=== PATIENT | female | born 1955 | race American Indian/Alaskan Native ===

== ENCOUNTER 2018-07-15 19:03 | Observation (INO) | payer MEDICAID, OTHER ==
[2018-07-15 19:32] VITALS: BMI 25.7
[2018-07-15] MEDS ORDERED: Sodium Chloride 0.9% 1,000 ML IV STA (19:56)
--- NOTE | 2018-07-15 20:29 | ED PDOC ---
Arrival/HPI - General Chief Complaint: Female Genitourinary Time Seen by Provider: 07/15/18 19:26 Historian: Patient - History of Present Illness Narrative History of Present Illness (Text): 07/15/18 20:27 A 63 year old female, whose past medical history includes hypertension, diabetes, and cervical cancer, presents to the emergency department complaining of abdominal discomfort with associated occassional nausea/diarrhea for the past 3 days. Patient denies any fever, chills, cough, vomiting, shortness of breath, chest pain, or any other complaints at this time. PMD: Dr. Svetlana Rogers Time/Duration: < week (3 days ) Past Medical History - Provider Review Nursing Documentation Reviewed: Yes - Infectious Disease Hx of Infectious Diseases: None - Cardiac Hx Hypertension: Yes - Endocrine/Metabolic Hx Diabetes Mellitus Type 2: Yes (takes metformin) - Hematological/Oncological Hx Cancer: Yes (clitoris) - Psychiatric Hx Substance Use: No - Surgical History Hx Tubal Ligation: Yes Other/Comment: Vaginal surgery for CA. Vaginal cyst I&D - Anesthesia Hx Anesthesia: Yes Hx Anesthesia Reactions: No Family/Social History - Physician Review Nursing Documentation Reviewed: Yes Family/Social History: No Known Family HX Smoking Status: Former Smoker Hx Alcohol Use: Yes Frequency of alcohol use: Socially Hx Substance Use: No Allergies/Home Meds Allergies/Adverse Reactions: Allergies No Known Allergies Allergy (Verified 07/15/18 19:33) Review of Systems - Physician Review All systems were reviewed & negative as marked: Yes - Review of Systems Constitutional: absent: Fevers, Night Sweats Respiratory: absent: SOB, Cough Cardiovascular: absent: Chest Pain Gastrointestinal: Abdominal Pain (abdominal discomfort), Diarrhea, Nausea. absent: Vomiting Physical Exam Vital Signs Reviewed: Yes Vital Signs Pulse Resp BP Pulse Ox 07/15/18 19:32 92 H 18 151/81 H 99 Blood Pressure: Normal Pulse: Regular Respiratory Rate: Normal Appearance: Positive for: Well-Appearing, Non-Toxic, Comfortable Pain Distress: None Mental Status: Positive for: Alert and Oriented X 3 - Systems Exam Head: Present: Atraumatic, Normocephalic Pupils: Present: PERRL Extroacular Muscles: Present: EOMI Conjunctiva: Present: Normal Mouth: Present: Moist Mucous Membranes Neck: Present: Normal Range of Motion Respiratory/Chest: Present: Clear to Auscultation, Good Air Exchange. No: Respiratory Distress, Accessory Muscle Use Cardiovascular: Present: Regular Rate and Rhythm, Normal S1, S2. No: Murmurs Abdomen: Present: Tenderness (left upper abdomen), Normal Bowel Sounds. No: Distention, Peritoneal Signs Back: Present: Normal Inspection Upper Extremity: Present: Normal Inspection. No: Cyanosis, Edema Lower Extremity: Present: Normal Inspection. No: Edema Neurological: Present: GCS=15, CN II-XII Intact, Speech Normal Skin: Present: Warm, Dry, Normal Color. No: Rashes Psychiatric: Present: Alert, Oriented x 3, Normal Insight, Normal Concentration Medical Decision Making ED Course and Treatment: 07/15/18 20:28 Impression: 63 year old female with abdominal discomfort with associated occasional nausea/diarrhea. No acute findings on physical examination. Plan: -- Abd/Pelvis CT -- Labs -- Urinalysis -- Pepcid -- IV Fluids -- Toradol -- Zofran -- Reassess and disposition Progress Notes: 07/15/18 23:58 CT Abdomen and Pelvis: FINDINGS: LUNG BASES: The lung bases appear clear. No pleural effusions are seen. LIVER: Unremarkable. GALLBLADDER AND BILE DUCTS: The gallbladder appears within normal limits. No radioopaque gallstones are seen. No biliary ductal dilatation is evident. PANCREAS: There is diffuse pancreatic ductal dilatation, up to 7 mm. This is associated with scattered pancreatic calcifications compatible with chronic pancreatitis. There is no evidence of a pancreatis mass. SPLEEN: Unremarkable. ADRENAL GLANDS: Unremarkable. KIDNEYS, URETERS, AND BLADDER: The kidneys appear within normal limits. There is no hydronephrosis or hydroureter. No urinary calculi are seen. STOMACH AND BOWEL: Unremarkable appearance of the stomach and bowel. No evidence of bowel obstruction. No evidence suggesting enteritis or colitis. APPENDIX: No evidence of acute appendicitis on CT examination. PERITONEUM: No free fluid. No free air. LYMPH NODES: No lymphadenopathy is evident. REPRODUCTIVE: The uterus contains several small calcified fibroids. VASCULATURE: No evidence of abdominal aortic aneurysm. BONES: No aggressive appearing osseous lesion. No acute osseous pathology evident. IMPRESSION: 1. There is diffuse pancreatic ductal dilatation, up to 7 mm. This is associated with scattered pancreatic calcifications compatible with chronic pancreatitis. There is no evidence of a pancreatis mass. 2. The uterus contains several small calcified fibroids. Electronically signed on Jul 15, 2018 11:52:58 PM EST by: Roderick Bush M.D., LEE Certified By [facility] & [facility] Fellowship Trained MRI and CT Specialist 07/16/18 00:32 Case discussed with biomedical engineering supervisor telesales professional, who is aware and agrees with plan. 07/16/18 00:[address] Kaur, who is aware and agrees with plan. Accepts pt in to hospitalist service. - RAD Interpretation Radiology Orders: 07/15/18 19:59 ABD & PELVIS IV CONTRAST ONLY [CT] Stat - Medication Orders Current Medication Orders: Sodium Chloride (Sodium Chloride 0.9%) 1,000 mls @ 999 mls/hr IV .Q1H1M STA Stop: 07/15/18 20:56 Discontinued Medications Famotidine (Pepcid) 20 mg IVP STAT STA Stop: 07/15/18 19:57 Ketorolac Tromethamine (Toradol) 30 mg IVP ONCE ONE Stop: 07/15/18 19:57 Ondansetron HCl (Zofran Inj) 4 mg IVP ONCE ONE Stop: 07/15/18 19:57 - Scribe Statement The provider has reviewed the documentation as recorded by the Soo Daniels Provider Scribe Attestation: All medical record entries made by the Scribe were at my direction and personally dictated by me. I have reviewed the chart and agree that the record accurately reflects my personal performance of the history, physical exam, medical decision making, and the department course for this patient. I have also personally directed, reviewed, and agree with the discharge instructions and disposition. Disposition/Present on Arrival - Present on Arrival Any Indicators Present on Arrival: No History of DVT/PE: No History of Uncontrolled Diabetes: No Urinary Catheter: No History of Decub. Ulcer: No History Surgical Site Infection Following: None - Disposition Have Diagnosis and Disposition been Completed?: Yes Diagnosis: Pancreatitis Disposition: HOSPITALIZED Disposition Time: 00:30 Patient Problems: Current Active Problems Problem Status Onset Pancreatitis Acute Condition: STABLE Referrals: Svetlana Rogers MD [Primary Care Provider] - Follow up with primary Forms: [employer] (French)
[2018-07-15 21:00] LABS: HEMOGLOBIN 13.9 g/dL (12.0-16.0); MEAN CELL VOLUME 96.4 fl (80.0-105.0); MEAN CORPUSCULAR HEMOGLOBIN 33.3 pg (25.0-35.0); MEAN CORPUSCULAR HGB CONC 34.6 g/dl (31.0-37.0); MEAN PLATELET VOLUME 9.1 fl (7.0-11.0); RBC 4.17 10^6/uL (3.5-6.1); URINE BILIRUBIN SMALL (NEGATIVE); URINE BLOOD NEGATIVE (NEGATIVE); URINE GLUCOSE (UA) NEGATIVE (NEGATIVE); URINE LEUKOCYTE ESTERASE TRACE Leu/uL (NEGATIVE); URINE PROTEIN TRACE mg/dL (<30 mg/dL); URINE UROBILINOGEN 0.2 E.U./dL (<1 E.U./dL); WHITE BLOOD COUNT 6.7 10^3/uL (4.5-11.0)
[2018-07-15 21:01] LABS: URINE APPEARANCE SL CLOUDY (CLEAR); URINE COLOR YELLOW (YELLOW)
[2018-07-15 21:19] LABS: URINE BACTERIA FEW /hpf; URINE RBC 0 - 2 /hpf (0-2)
[2018-07-15 22:18] LABS: ALB/GLOB RATIO 1.4 (1.1-1.8); ALBUMIN 4.5 g/dL (3.0-4.8); ALT/SGPT 22 U/L (7-56); AST/SGOT 27 U/L (14-36); BLOOD UREA NITROGEN 16 mg/dL (7-21); CALCIUM 10.4 mg/dL (8.4-10.5); GFR NON-AFRICAN AMERICAN > 60; LIPASE 738 U/L (23-300)
[2018-07-15] MEDS ORDERED: Iohexol 350 MG/100 ML VIAL ONE (22:44)
[2018-07-16] MEDS ORDERED: Sodium Chloride 0.9% 1,000 ML IV STA (01:25)
--- NOTE | 2018-07-16 01:41 | CP.PCM.HP ---
<HilariaPaco - Last Filed: 07/16/18 02:15> History of Present Illness - History of Present Illness History of Present Illness: Paco Manrique, PGY-1, Internal Medicine History and Physical for Dr. Kaur 63 year old female who is a poor historian with past medical history of chronic pancreatitis, cervical cancer, hypertension, hyperlipidemia, and diabetes mellitus type II presents with diffuse abdominal pain, vomiting, and diarrhea which worsened the past 3 days. Patient has a baseline epigastric abdominal pain, but reports that the pain has worsened and radiated to bilateral flank pain. Pain worsens with food intake. Patient reports having 2-3 episodes of nonbloody, nonbilious vomitus 2 days ago but has not any since that time. Patient has had black diarrhea as well over the past 2 days as patient reported that she took peptobismol and maalox. Patient reports unspecified weight loss in the last month. Patient has constant neuropathic pain in both lower extremities. Patient denies constipation, fever, chest pain, shortness of breath, dysuria, hematuria, or lower extremity swelling. 12-point ROS was negative except for what was mentioned above. PMH: as stated above PSH: tubal ligation, veginal cystectomy, 4 unspecified operations for cervical cancer FMHx: Mother: HTN and from old age at 75. Mother's side has family history of breast and gastric cancer. SHx: 1/2 PPD for 40 years, drinks 3 glasses of wine socially on holidays, denies recreational drug use. Last drink was on 07/10. Allergies: NKDA PCP: Dr. Walls. Patient previously has had Dr. Chakraborty and Dr. Meng as PCPs but is no longer seeing any of them because she lost Medicaid. Present on Admission - Present on Admission Any Indicators Present on Admission: No Review of Systems - Constitutional Constitutional: Weight Loss. absent: Anorexia, Chills, Fever, Headache - EENT Eyes: absent: Blurred Vision Ears: absent: Decreased Hearing - Cardiovascular Cardiovascular: absent: Chest Pain, Chest Pain at Rest, Diaphoresis, Dyspnea, Edema - Respiratory Respiratory: Cough (chronic nonproductive). absent: Dyspnea, Hemoptysis - Gastrointestinal Gastrointestinal: Abdominal Pain, Diarrhea. absent: Belching, Bloating, Constipation, Hematemesis, Hematochezia - Genitourinary Genitourinary: absent: Dysuria, Hematuria - Musculoskeletal Musculoskeletal: Back Pain. absent: Arthralgias - Integumentary Integumentary: Rash (on right lower extremity) - Neurological Neurological: Radicular Pain. absent: Numbness, Headaches Past Patient History - Infectious Disease Hx of Infectious Diseases: None - Past Social History Smoking Status: Former Smoker Alcohol: Occasional Drugs: Denies Home Situation {Lives}: With Family - CARDIAC Hx Hypertension: Yes - ENDOCRINE/METABOLIC Hx Diabetes Mellitus Type 2: Yes (takes metformin) - HEMATOLOGICAL/ONCOLOGICAL Hx Cancer: Yes (clitoris) - PSYCHIATRIC Hx Substance Use: No - SURGICAL HISTORY Hx Tubal Ligation: Yes Other/Comment: Vaginal surgery for CA. Vaginal cyst I&D - ANESTHESIA Hx Anesthesia: Yes Hx Anesthesia Reactions: No Meds Allergies/Adverse Reactions: Allergies Allergy/AdvReac Type Severity Reaction Status Date / Time No Known Allergies Allergy Verified 07/15/18 19:33 Physical Exam - Constitutional Appears: Well, Non-toxic, No Acute Distress - Head Exam Head Exam: ATRAUMATIC, NORMAL INSPECTION, NORMOCEPHALIC - Eye Exam Eye Exam: EOMI Pupil Exam: PERRL - Respiratory Exam Respiratory Exam: Clear to Auscultation Bilateral, NORMAL BREATHING PATTERN - Cardiovascular Exam Cardiovascular Exam: REGULAR RHYTHM, RRR - GI/Abdominal Exam GI & Abdominal Exam: Normal Bowel Sounds, Soft, Tenderness (diffuse). absent: Distended, Guarding, Rebound - Extremities Exam Extremities exam: Positive for: full ROM - Back Exam Back exam: FULL ROM - Neurological Exam Neurological exam: Alert, CN II-XII Intact, Oriented x3 Results - Vital Signs Recent Vital Signs: Last Vital Signs Temp Pulse 92 H 07/15/18 19:32 Resp 18 07/15/18 19:32 BP 151/81 H 07/15/18 19:32 Pulse Ox 99 07/15/18 19:32 - Labs Result Diagrams: 07/15/18 20:30 07/15/18 21:50 Labs: Laboratory Results - last 24 hr 07/15/18 07/15/18 07/15/18 20:30 20:30 21:50 WBC 6.7 RBC 4.17 Hgb 13.9 Hct 40.2 MCV 96.4 MCH 33.3 MCHC 34.6 RDW 14.0 Plt Count 319 MPV 9.1 Sodium 135 Potassium 4.2 Chloride 103 Carbon Dioxide 25 Anion Gap 12 BUN 16 Creatinine 0.7 Est GFR ( Amer) > 60 Est GFR (Non-Af Amer) > 60 Random Glucose 139 H Calcium 10.4 Total Bilirubin 0.5 AST 27 ALT 22 Alkaline Phosphatase 78 Total Protein 7.8 Albumin 4.5 Globulin 3.3 Albumin/Globulin Ratio 1.4 Lipase 738 H Urine Color Yellow Urine Appearance Sl cloudy Urine pH 6.0 Ur Specific Eldridge >= 1.030 Urine Protein Trace H Urine Glucose (UA) Negative Urine Ketones 15 H Urine Blood Negative Urine Nitrate Negative Urine Bilirubin Small H Urine Urobilinogen 0.2 Ur Leukocyte Esterase Trace H Urine RBC 0 - 2 Urine WBC 1 - 3 Ur Epithelial Cells 1 - 3 Urine Bacteria Few Assessment & Plan - Assessment and Plan (Free Text) Assessment: 63 year old female with past medical history of chronic pancreatitis, cervical cancer, hypertension, hyperlipidemia, and diabetes mellitus type II presents with diffuse abdominal pain, vomiting, and diarrhea which worsened the past 3 days. Plan: Abdominal Pain likely 2/2 to chronic pancreatitis -Doubt acute pancreatitis as lipase is not 3x normal, CTAP shows evidence for chronic pancreatitis, and clinical symptoms are not solar sales representative of acute pancreatitis attack -CT abdomen and pelvis: diffuse pancreatic ductal dilatation up to 7 mm. Scattered pancreatic calcifications compatible with chronic pancreatitis. No mass appreciated. Few calcified fibroids seen. -FOBT ordered to rule out upper GI bleed as cause of dark stool. Dark stool likely due to peptobismol. -Monona criteria: 1. Unlikely severe acute pancreatitis. -NPO -NS at 150 cc/hr -Tylenol for mild pain, Ibuprofen for moderate pain, and Tramadol for severe pain as needed -Advance diet as tolerated History of Cervical Cancer -Patient has had 4 surgeries in the past for cervical cancer -Patient is not complaining of any symptoms at this time. -CT Abdomen and pelvis: calcified fibroids likely representing degenerating fibroids -No management at this time. History of Hypertension -Continue with home medications History of Hyperlipidemia -Lipid panel ordered -Currently takes no medications at home History of Diabetes Mellitus Type II -Random glucose: 139 -Hemoglobin A1c ordered -Low dose SSI ordered DVT prophylaxis: lovenox 40 mg daily GI prophylaxis: protonix 40 mg daily Patient plan discussed with Dr. Kaur. - Date & Time Date: 07/16/18 Time: 01:45 <Gerardo Kaur - Last Filed: 07/16/18 06:11> Results - Vital Signs Recent Vital Signs: Last Vital Signs Temp 98.1 F 07/16/18 04:52 Pulse 56 L 07/16/18 04:52 Resp 20 07/16/18 04:52 BP 126/76 07/16/18 04:52 Pulse Ox 97 07/16/18 04:52 - Labs Result Diagrams: 07/15/18 20:30 07/15/18 21:50 Labs: Laboratory Results - last 24 hr 07/15/18 07/15/18 07/15/18 20:30 20:30 21:50 WBC 6.7 RBC 4.17 Hgb 13.9 Hct 40.2 MCV 96.4 MCH 33.3 MCHC 34.6 RDW 14.0 Plt Count 319 MPV 9.1 Sodium 135 Potassium 4.2 Chloride 103 Carbon Dioxide 25 Anion Gap 12 BUN 16 Creatinine 0.7 Est GFR ( Amer) > 60 Est GFR (Non-Af Amer) > 60 Random Glucose 139 H Calcium 10.4 Total Bilirubin 0.5 AST 27 ALT 22 Alkaline Phosphatase 78 Total Protein 7.8 Albumin 4.5 Globulin 3.3 Albumin/Globulin Ratio 1.4 Lipase 738 H Urine Color Yellow Urine Appearance Sl cloudy Urine pH 6.0 Ur Specific Eldridge >= 1.030 Urine Protein Trace H Urine Glucose (UA) Negative Urine Ketones 15 H Urine Blood Negative Urine Nitrate Negative Urine Bilirubin Small H Urine Urobilinogen 0.2 Ur Leukocyte Esterase Trace H Urine RBC 0 - 2 Urine WBC 1 - 3 Ur Epithelial Cells 1 - 3 Urine Bacteria Few Influenza Typ A,B (EIA) 07/16/18 01:50 WBC RBC Hgb Hct MCV MCH MCHC RDW Plt Count MPV Sodium Potassium Chloride Carbon Dioxide Anion Gap BUN Creatinine Est GFR ( Amer) Est GFR (Non-Af Amer) Random Glucose Calcium Total Bilirubin AST ALT Alkaline Phosphatase Total Protein Albumin Globulin Albumin/Globulin Ratio Lipase Urine Color Urine Appearance Urine pH Ur Specific Eldridge Urine Protein Urine Glucose (UA) Urine Ketones Urine Blood Urine Nitrate Urine Bilirubin Urine Urobilinogen Ur Leukocyte Esterase Urine RBC Urine WBC Ur Epithelial Cells Urine Bacteria Influenza Typ A,B (EIA) Negative for flu a/b Attending/Attestation - Attestation I have personally seen and examined this patient.: Yes I have fully participated in the care of the patient.: Yes I have reviewed all pertinent clinical information: Yes Notes (Text): 07/16/18 06:08 Patient was seen when she was in the ER. Medical record was reviewed. Agree with history , physical examination, assessment and plan with addition, substraction. 63 year old woman with CC: Abdominal discomfort: Epigastric Both upper quadrant. Nausea ,vomiting :3 daYS Diarrhoea : Pancreatitis. Gluceos-139 Lipase-738. Urine-L.Est-trace,coudy,ketone-15, EKG-Sinus bradycardia. CT ABD/P:Diffuse panncreatic ductal dilation-upt 7mm. Scattered pancreatic calcification.-Compatible with chronic pancreatitis. Uterus contains several small calcified fibroids. PMH: HTN DM II HLD Cervical cancer. Ch. Pancreatitis. Tubal ligation. Vaginal cyst,I&D Former smoker. Alcohol social user. F hx Breast ca F hx stomach ca F hx HTN HOME MEDS: Metformin HCTZ Norvasc.
[2018-07-16 07:07] LABS: BASO # 0.02 K/mm3 (0.0-2.0); BASO % 0.4 % (0.0-3.0); EOS # 0.2 (0.0-0.7); EOS % 3.7 % (1.5-5.0); GRAN # 2.87 (1.4-6.5); GRAN % 58.4 % (50.0-68.0); HEMOGLOBIN 13.1 g/dL (12.0-16.0); LYMPH # 1.3 (1.2-3.4); LYMPH % 25.5 % (22.0-35.0); MEAN CELL VOLUME 96.8 fl (80.0-105.0); MEAN CORPUSCULAR HEMOGLOBIN 32.6 pg (25.0-35.0); MEAN CORPUSCULAR HGB CONC 33.7 g/dl (31.0-37.0); MEAN PLATELET VOLUME 8.5 fl (7.0-11.0); MONO # 0.6 (0.1-0.6); RBC 4.02 10^6/uL (3.5-6.1); RED CELL DISTRIBUTION WIDTH 13.7 % (11.5-14.5); WHITE BLOOD COUNT 4.9 10^3/uL (4.5-11.0)
[2018-07-16 07:15] LABS: ALB/GLOB RATIO 1.4 (1.1-1.8); ALBUMIN 4.2 g/dL (3.0-4.8); ALT/SGPT 17 U/L (7-56); AST/SGOT 19 U/L (14-36); BLOOD UREA NITROGEN 14 mg/dL (7-21); CALCIUM 9.5 mg/dL (8.4-10.5); GFR NON-AFRICAN AMERICAN > 60; HDL CHOLESTEROL 42 mg/dL (29-60)
[2018-07-16 07:23] LABS: LDL CHOLESTEROL 109 mg/dL (0-129)
[2018-07-16] MEDS: Insulin Reg-LOW-Coverage SC SCH ×4 (09:19→21:57)
[2018-07-16] MEDS: Enoxaparin 40 mg Syringe SC SCH (09:20)
--- NOTE | 2018-07-16 13:22 | CT ---
Date of service: 07/15/2018 PROCEDURE: CT Abdomen and Pelvis with contrast HISTORY: abdominal pain COMPARISON: None. TECHNIQUE: Contrast dose: Radiation dose: Total exam DLP = 329.4 mGy-cm. This CT exam was performed using one or more of the following dose reduction techniques: Automated exposure control, adjustment of the mA and/or kV according to patient size, and/or use of iterative reconstruction technique. FINDINGS: LOWER THORAX: Unremarkable. LIVER: Unremarkable. No gross lesion or ductal dilatation. GALLBLADDER AND BILE DUCTS: Unremarkable. PANCREAS: Severe pancreatic duct dilatation measuring up to 7 millimeters with pancreatic calcifications in the head suspicious for chronic pancreatitis. No gross evidence of mass but correlation with dedicated MRI with contrast and MRCP is recommended to exclude underlying mass. SPLEEN: Unremarkable. ADRENALS: Unremarkable. No mass. KIDNEYS AND URETERS: Unremarkable. No hydronephrosis. No solid mass. VASCULATURE: Unremarkable. No aortic aneurysm. No aortic atherosclerotic calcification or mural plaque present. BOWEL: Unremarkable. No obstruction. No gross mural thickening. APPENDIX: Normal appendix. PERITONEUM: Unremarkable. No free fluid. No free air. LYMPH NODES: Unremarkable. No enlarged lymph nodes. BLADDER: Unremarkable. REPRODUCTIVE: Unremarkable. BONES: No acute fracture. OTHER FINDINGS: None. IMPRESSION: Severe pancreatic duct dilatation measuring up to 7 millimeters with pancreatic calcifications in the head suspicious for chronic pancreatitis. No gross evidence of mass but correlation with dedicated MRI with contrast and MRCP is recommended to exclude underlying mass.
[2018-07-16] MEDS ORDERED: Simethicone 80 mg Chewtab PO PRN (15:34)
[2018-07-16] MEDS ORDERED: Gadodiamide 287 MG/ML VIAL (20ML) IV ONE (18:37)
[2018-07-17 07:01] LABS: BASO # 0.02 K/mm3 (0.0-2.0); BASO % 0.4 % (0.0-3.0); EOS # 0.1 (0.0-0.7); EOS % 2.7 % (1.5-5.0); GRAN # 2.78 (1.4-6.5); GRAN % 58.8 % (50.0-68.0); HEMOGLOBIN 11.8 g/dL (12.0-16.0); LYMPH # 1.2 (1.2-3.4); LYMPH % 25.6 % (22.0-35.0); MEAN CELL VOLUME 96.7 fl (80.0-105.0); MEAN CORPUSCULAR HEMOGLOBIN 32.1 pg (25.0-35.0); MEAN CORPUSCULAR HGB CONC 33.1 g/dl (31.0-37.0); MEAN PLATELET VOLUME 8.6 fl (7.0-11.0); MONO # 0.6 (0.1-0.6); MONO % 12.5 % (1.0-6.0); RBC 3.68 10^6/uL (3.5-6.1); RED CELL DISTRIBUTION WIDTH 13.5 % (11.5-14.5); WHITE BLOOD COUNT 4.7 10^3/uL (4.5-11.0)
--- NOTE | 2018-07-17 07:07 | CP.PCM.PN ---
<Azalia Flowers - Last Filed: 07/17/18 14:44> Subjective - Date & Time of Evaluation Date of Evaluation: 07/17/18 Time of Evaluation: 07:06 - Subjective Subjective: Resident Progress Note for Hospitalist Service Patient examined at bedside. No acute events overnight. Patient reports improvement in abdominal pain. Admits to constipation. States she is tolerating PO intake. Offers no other complaints. Objective - Vital Signs/Intake and Output Vital Signs (last 24 hours): Temp Pulse Resp BP Pulse Ox 98.1 F 63 19 147/94 H 97 07/16/18 16:34 07/16/18 16:34 07/16/18 16:34 07/16/18 16:34 07/16/18 16:34 Intake and Output: 07/17/18 07/17/18 06:59 18:59 Intake Total 440 Balance 440 - Medications Medications: Current Medications Acetaminophen (Tylenol 325mg Tab) 650 mg PO Q6H PRN PRN Reason: Pain, Mild (1-3) Enoxaparin Sodium (Lovenox) 40 mg SC DAILY [facility]; Protocol Last Admin: 07/16/18 09:20 Dose: 40 mg Ibuprofen (Motrin Tab) 600 mg PO Q6 PRN PRN Reason: Pain, moderate (4-7) Last Admin: 07/16/18 08:15 Dose: 600 mg Insulin Human Regular (Humulin R Low) 0 units SC [facility]; Protocol Last Admin: 07/16/18 21:57 Dose: Not Given Pantoprazole Sodium (Protonix Inj) 40 mg IVP DAILY JESSICA Last Admin: 07/16/18 09:21 Dose: 40 mg Simethicone (Mylicon Chew Tab) 80 mg PO PCHS PRN PRN Reason: GI distress Last Admin: 07/16/18 16:07 Dose: 80 mg Tramadol HCl (Ultram) 50 mg PO TID PRN PRN Reason: Pain, severe (8-10) Last Admin: 07/16/18 21:13 Dose: 50 mg - Labs Labs: 07/16/18 06:00 07/16/18 06:00 - Additional Findings Additional findings: - Constitutional Appears: Well, Non-toxic, No Acute Distress - Head Exam Head Exam: ATRAUMATIC, NORMAL INSPECTION, NORMOCEPHALIC - Eye Exam Eye Exam: EOMI - Respiratory Exam Respiratory Exam: Clear to Auscultation Bilateral, NORMAL BREATHING PATTERN - Cardiovascular Exam Cardiovascular Exam: REGULAR RHYTHM, RRR - GI/Abdominal Exam GI & Abdominal Exam: Normal Bowel Sounds, Soft. absent: Distended, Guarding, Rebound, Tenderness - Extremities Exam Extremities exam: Positive for: full ROM - Neurological Exam Neurological exam: Alert, CN II-XII Intact, Oriented x3 Assessment and Plan - Assessment and Plan (Free Text) Assessment: 63 year old female with past medical history of chronic pancreatitis, cervical cancer, hypertension, hyperlipidemia, and diabetes mellitus type II presents with diffuse abdominal pain, vomiting, and diarrhea. Plan: Abdominal pain - CT abd/pelvis: diffuse pancreatic ductal dilatation up to 7 mm. Scattered pancreatic calcifications compatible with chronic pancreatitis. No mass appreciated. - Tylenol, ibuprofen, tramadol for pain management - GI consulted. Appreciate recs. - followup MRCP Hx hyperlipidemia - Lpid panel unremarkable - Currently takes no medications Hx T2DM - Hgba1c 6.3 - ISS, accuchecks History of cervical cancer - CT abd/pelvis: calcified fibroids likely representing degenerating fibroids - No management indicated at this time PPX - Lovenox 40 mg SC daily - Protonix 40 mg IV daily Case discussed with Dr. Ronnie Flowers PGY-1 <Yokasta Trujillo - Last Filed: 07/17/18 15:56> Objective - Vital Signs/Intake and Output Vital Signs (last 24 hours): Temp Pulse Resp BP Pulse Ox 98.1 F 63 19 147/94 H 97 07/16/18 16:34 07/16/18 16:34 07/16/18 16:34 07/16/18 16:34 07/16/18 16:34 Intake and Output: 07/17/18 07/17/18 06:59 18:59 Intake Total 440 Balance 440 - Medications Medications: Current Medications Acetaminophen (Tylenol 325mg Tab) 650 mg PO Q6H PRN PRN Reason: Pain, Mild (1-3) Amylase (Pancrease [id number] U) 10,000 unit PO TID [facility] Benzonatate (Tessalon Perles) 100 mg PO TID [facility] Last Admin: 07/17/18 14:07 Dose: 100 mg Enoxaparin Sodium (Lovenox) 40 mg SC DAILY [facility]; Protocol Last Admin: 07/17/18 10:45 Dose: 40 mg Ibuprofen (Motrin Tab) 600 mg PO Q6 PRN PRN Reason: Pain, moderate (4-7) Last Admin: 07/16/18 08:15 Dose: 600 mg Insulin Human Regular (Humulin R Low) 0 units SC [facility]; Protocol Last Admin: 07/17/18 11:57 Dose: 2 unit Pantoprazole Sodium (Protonix Inj) 40 mg IVP DAILY JESSICA Last Admin: 07/17/18 10:46 Dose: 40 mg Polyethylene Glycol (Miralax) 17 gm PO DAILY PRN PRN Reason: Constipation Simethicone (Mylicon Chew Tab) 80 mg PO PCHS PRN PRN Reason: GI distress Last Admin: 07/16/18 16:07 Dose: 80 mg Tramadol HCl (Ultram) 50 mg PO TID PRN PRN Reason: Pain, severe (8-10) Last Admin: 07/17/18 14:07 Dose: 50 mg - Labs Labs: 07/17/18 06:30 07/17/18 06:30 Attending/Attestation - Attestation I have personally seen and examined this patient.: Yes I have fully participated in the care of the patient.: Yes I have reviewed all pertinent clinical information, including history, physical exam and plan: Yes Notes (Text): 07/17/18 15:53 63 year old female with past medical history of chronic pancreatitis, alcohol abuse, cervical cancer, hypertension, dyslipidemia and diabetes who presented with complaint of abdominal pain. CT abd/pelvis showed diffuse pancreatitic ductal dilatation (7mm) and scattered pancreatic calcifications compatible with chronic pancreatitis. MRCP was done with pending report. GI evaluation was requested; will follow up recommendations. Continue with liquid diet as tolerated. Yokasta Trujillo MD Hospitalist.
[2018-07-17 07:16] LABS: ALB/GLOB RATIO 1.3 (1.1-1.8); ALBUMIN 3.6 g/dL (3.0-4.8); ALT/SGPT 15 U/L (7-56); AST/SGOT 18 U/L (14-36); BLOOD UREA NITROGEN 10 mg/dL (7-21); CALCIUM 9.3 mg/dL (8.4-10.5); GFR NON-AFRICAN AMERICAN > 60
[2018-07-17] MEDS: Insulin Reg-LOW-Coverage SC SCH ×4 (10:45→21:39)
[2018-07-17] MEDS: Enoxaparin 40 mg Syringe SC SCH (10:45)
--- NOTE | 2018-07-17 11:04 | CP.PCM.CON ---
<Catrachito Yoon - Last Filed: 07/17/18 10:57> History of Present Illness - History of Present Illness History of Present Illness: GI Fellow PGY4, Consult note. Patient is 63F presenting with abdominal pain. She has history of chronic pancreatitis, HTN, DM. The abdominal pain has been constant x 3 days, and recurrent over the last 15 years. It is improving since being in the hospital. The pain is usually exacerbated by alcohol, hot food/drinks. She is tolerating her diet today. She continues to smoke and drink alcohol regularly. CT A/P on admission showed pancreas with calcifications and dilated PD. She is not taking medications at home currently due to change in her insurance plan and unable to afford medications. PMH - as above PSH - cervical cancer FMHx - Mother-gastric cancer. SHx - chronic user of tobacco and alcohol. Last drink was on 07/10. 12pt ROS completed and negative except for above. Past Patient History - Infectious Disease Hx of Infectious Diseases: None - Past Social History Smoking Status: Former Smoker - CARDIAC Hx Cardiac Disorders: No Hx Angina: No Hx Cardia Arrhythmia: No Hx Circulatory Problems: No Hx Congestive Heart Failure: No Hx Heart Murmur: No Hx Heart Transplant: No Hx Hypercholesterolemia: Yes Hx Hypertension: Yes Hx Internal Defibrillator: No Hx Mitral Valve Prolapse: No Hx Pacemaker: No Hx Peripheral Edema: No Hx Peripheral Vascular Disease: No - PULMONARY Other/Comment: uses pump when feeling SOB, denies asthma or COPD - NEUROLOGICAL Hx Neurological Disorder: No Hx Alzheimer's Disease: No HX Cerebrovascular Accident: No Hx Dementia: No Hx Dizziness: No Hx Meningitis: No Hx Migraine: No Hx Parkinson's Disease: No Hx Seizures: No Hx Transient Ischemic Attacks (TIA): No - RENAL Hx Dialysis: No - ENDOCRINE/METABOLIC Hx Endocrine Disorders: Yes Hx Diabetes Mellitus Type 2: Yes - HEMATOLOGICAL/ONCOLOGICAL Hx Blood Disorders: No Hx AIDS: No Hx Anemia: No Hx Cancer: Yes Hx Chemotherapy: Yes Hx Cirrhosis: No Hx Hepatitis A: No Hx Hepatitis B: No Hx Hepatitis C: No Hx Human Immunodeficiency Virus (HIV): No Hx Metastesis: No Hx Shingles: No Hx Unexplained Bleeding: No - MUSCULOSKELETAL/RHEUMATOLOGICAL Hx Falls: No - PSYCHIATRIC Hx Substance Use: No - SURGICAL HISTORY Hx Surgeries: Yes (tubal ligation) Hx Cardiac Catheterization: No Hx Coronary Stent: No - ANESTHESIA Hx Anesthesia: Yes Hx Anesthesia Reactions: No Meds Allergies/Adverse Reactions: Allergies Allergy/AdvReac Type Severity Reaction Status Date / Time No Known Allergies Allergy Verified 07/15/18 19:33 - Medications Medications: Current Medications Acetaminophen (Tylenol 325mg Tab) 650 mg PO Q6H PRN PRN Reason: Pain, Mild (1-3) Benzonatate (Tessalon Perles) 100 mg PO TID PRN PRN Reason: Cough Enoxaparin Sodium (Lovenox) 40 mg SC DAILY [facility]; Protocol Last Admin: 07/17/18 10:45 Dose: 40 mg Ibuprofen (Motrin Tab) 600 mg PO Q6 PRN PRN Reason: Pain, moderate (4-7) Last Admin: 07/16/18 08:15 Dose: 600 mg Insulin Human Regular (Humulin R Low) [address] [facility]; Protocol Last Admin: 07/17/18 10:45 Dose: Not Given Pantoprazole Sodium (Protonix Inj) 40 mg IVP DAILY [facility] Last Admin: 07/17/18 10:46 Dose: 40 mg Simethicone (Mylicon Chew Tab) 80 mg PO PCHS PRN PRN Reason: GI distress Last Admin: 07/16/18 16:07 Dose: 80 mg Tramadol HCl (Ultram) 50 mg PO TID PRN PRN Reason: Pain, severe (8-10) Last Admin: 07/16/18 21:13 Dose: 50 mg Physical Exam - Constitutional Appears: Non-toxic, No Acute Distress - Head Exam Head Exam: ATRAUMATIC, NORMAL INSPECTION - Eye Exam Eye Exam: EOMI, Normal appearance - ENT Exam ENT Exam: Mucous Membranes Moist, Normal Exam - Respiratory Exam Respiratory Exam: Clear to Auscultation Bilateral, NORMAL BREATHING PATTERN - Cardiovascular Exam Cardiovascular Exam: REGULAR RHYTHM, +S1, +S2 - GI/Abdominal Exam GI & Abdominal Exam: Normal Bowel Sounds, Soft. absent: Organomegaly, Tenderness - Extremities Exam Extremities exam: Positive for: normal inspection - Psychiatric Exam Psychiatric exam: Normal Affect, Normal Mood - Skin Skin Exam: Dry, Normal Color Results - Vital Signs Recent Vital Signs: Last Vital Signs Temp 98.1 F 07/16/18 16:34 Pulse 63 07/16/18 16:34 Resp 19 07/16/18 16:34 BP 147/94 H 07/16/18 16:34 Pulse Ox 97 07/16/18 16:34 - Labs Result Diagrams: 07/17/18 06:30 07/17/18 06:30 Labs: Laboratory Results - last 24 hr 07/16/18 07/16/18 07/16/18 08:00 11:31 16:12 WBC RBC Hgb Hct MCV MCH MCHC RDW Plt Count MPV Gran % Lymph % (Auto) Armstrong % (Auto) Eos % (Auto) Baso % (Auto) Gran # Lymph # (Auto) Armstrong # (Auto) Eos # (Auto) Baso # (Auto) Sodium Potassium Chloride Carbon Dioxide Anion Gap BUN Creatinine Est GFR ( Amer) Est GFR (Non-Af Amer) POC Glucose (mg/dL) 99 180 H Random Glucose Hemoglobin A1c 6.3 Calcium Total Bilirubin AST ALT Alkaline Phosphatase Total Protein Albumin Globulin Albumin/Globulin Ratio 07/16/18 07/17/18 07/17/18 21:38 06:30 06:30 WBC 4.7 RBC 3.68 Hgb 11.8 L Hct 35.6 L MCV 96.7 MCH 32.1 MCHC 33.1 RDW 13.5 Plt Count 275 MPV 8.6 Gran % 58.8 Lymph % (Auto) 25.6 Armstrong % (Auto) 12.5 H Eos % (Auto) 2.7 Baso % (Auto) 0.4 Gran # 2.78 Lymph # (Auto) 1.2 Armstrong # (Auto) 0.6 Eos # (Auto) 0.1 Baso # (Auto) 0.02 Sodium 135 Potassium 4.5 Chloride 107 Carbon Dioxide 24 Anion Gap 9 L BUN 10 Creatinine 0.5 L Est GFR ( Amer) > 60 Est GFR (Non-Af Amer) > 60 POC Glucose (mg/dL) 218 H Random Glucose 131 H Hemoglobin A1c Calcium 9.3 Total Bilirubin 0.3 AST 18 ALT 15 Alkaline Phosphatase 64 Total Protein 6.5 Albumin 3.6 Globulin 2.9 Albumin/Globulin Ratio 1.3 07/17/18 07:11 WBC RBC Hgb Hct MCV MCH MCHC RDW Plt Count MPV Gran % Lymph % (Auto) Armstrong % (Auto) Eos % (Auto) Baso % (Auto) Gran # Lymph # (Auto) Armstrong # (Auto) Eos # (Auto) Baso # (Auto) Sodium Potassium Chloride Carbon Dioxide Anion Gap BUN Creatinine Est GFR ( Amer) Est GFR (Non-Af Amer) POC Glucose (mg/dL) 129 H Random Glucose Hemoglobin A1c Calcium Total Bilirubin AST ALT Alkaline Phosphatase Total Protein Albumin Globulin Albumin/Globulin Ratio Assessment & Plan - Assessment and Plan (Free Text) Assessment: #Chronic Pancreatitis #DM #HTN #Alcohol abuse #Nicotine dependence PLAN: -CT reviewed, pancreatic calcifications and dilated PD consistent with chronic pancreatitis. Patient is at elevated risk for pancreatic cancer. -MRI ordered, results pending. -Abdominal pain is improving. If pain medications needed, would recommend low dose narcotics i.e tramadol. PPI may help as well. If concerned for pancreatic insufficiency, would start on pancreatic enzyme replacement, but she does not appear to need this now. -She must stop alcohol and tobacco completely, this has been discussed with patient. Case reviewed with Dr. Higginbotham. Please see addendum. - Date & Time Date: 07/17/18 Time: 11:04 <Willy Higginbotham V - Last Filed: 07/17/18 23:19> Meds - Medications Medications: Current Medications Acetaminophen (Tylenol 325mg Tab) 650 mg PO Q6H PRN PRN Reason: Pain, Mild (1-3) Amylase (Pancrease 80316 U-5000 [id number] U) 10,000 unit PO TID [facility] Last Admin: 07/17/18 18:21 Dose: 10,000 unit Benzonatate (Tessalon Perles) 100 mg PO TID [facility] Last Admin: 07/17/18 18:21 Dose: 100 mg Enoxaparin Sodium (Lovenox) 40 mg SC DAILY [facility]; Protocol Last Admin: 07/17/18 10:45 Dose: 40 mg Ibuprofen (Motrin Tab) 600 mg PO Q6 PRN PRN Reason: Pain, moderate (4-7) Last Admin: 07/16/18 08:15 Dose: 600 mg Insulin Human Regular (Humulin R Low) 0 units SC [facility]; Protocol Last Admin: 07/17/18 21:39 Dose: Not Given Pantoprazole Sodium (Protonix Inj) 40 mg IVP DAILY [facility] Last Admin: 07/17/18 10:46 Dose: 40 mg Polyethylene Glycol (Miralax) 17 gm PO DAILY PRN PRN Reason: Constipation Simethicone (Mylicon Chew Tab) 80 mg PO PCHS PRN PRN Reason: GI distress Last Admin: 07/16/18 16:07 Dose: 80 mg Tramadol HCl (Ultram) 50 mg PO TID PRN PRN Reason: Pain, severe (8-10) Last Admin: 07/17/18 14:07 Dose: 50 mg Results - Vital Signs Recent Vital Signs: Last Vital Signs Temp 98.9 F 07/17/18 16:16 Pulse 89 07/17/18 16:16 Resp 18 07/17/18 16:16 BP 125/78 07/17/18 16:16 Pulse Ox 96 07/17/18 16:16 - Labs Result Diagrams: 07/17/18 06:30 07/17/18 06:30 Labs: Laboratory Results - last 24 hr 07/17/18 07/17/18 07/17/18 06:30 06:30 07:11 WBC 4.7 RBC 3.68 Hgb 11.8 L Hct 35.6 L MCV 96.7 MCH 32.1 MCHC 33.1 RDW 13.5 Plt Count 275 MPV 8.6 Gran % 58.8 Lymph % (Auto) 25.6 Armstrong % (Auto) 12.5 H Eos % (Auto) 2.7 Baso % (Auto) 0.4 Gran # 2.78 Lymph # (Auto) 1.2 Armstrong # (Auto) 0.6 Eos # (Auto) 0.1 Baso # (Auto) 0.02 Sodium 135 Potassium 4.5 Chloride 107 Carbon Dioxide 24 Anion Gap 9 L BUN 10 Creatinine 0.5 L Est GFR ( Amer) > 60 Est GFR (Non-Af Amer) > 60 POC Glucose (mg/dL) 129 H Random Glucose 131 H Calcium 9.3 Total Bilirubin 0.3 AST 18 ALT 15 Alkaline Phosphatase 64 Total Protein 6.5 Albumin 3.6 Globulin 2.9 Albumin/Globulin Ratio 1.3 07/17/18 07/17/18 07/17/18 11:13 16:10 21:19 WBC RBC Hgb Hct MCV MCH MCHC RDW Plt Count MPV Gran % Lymph % (Auto) Armstrong % (Auto) Eos % (Auto) Baso % (Auto) Gran # Lymph # (Auto) Armstrong # (Auto) Eos # (Auto) Baso # (Auto) Sodium Potassium Chloride Carbon Dioxide Anion Gap BUN Creatinine Est GFR ( Amer) Est GFR (Non-Af Amer) POC Glucose (mg/dL) 215 H 160 H 180 H Random Glucose Calcium Total Bilirubin AST ALT Alkaline Phosphatase Total Protein Albumin Globulin Albumin/Globulin Ratio Attending/Attestation - Attestation I have personally seen and examined this patient.: Yes I have fully participated in the care of the patient.: Yes I have reviewed all pertinent clinical information: Yes Notes (Text): This is an addendum to GI consult report dictated by the GI Fellow. The patient was seen and examined earlier. Medical records, lab studies, imagings were reviewed. Last 24 hours events reviewed. Agreed with the above treatment plan as outlined in GI Fellow 's notes with the addition of the following this patient has long history of EtOH use, history of chronic pancreatitis History of recent increased use of alcohol Admitted with abdominal pain Requested MRCP Patient would benefit from GI follow-up for long-term management of chronic pancreatitis and EUS/EGD patient already has follow-up appointment at the [facility] . patient was advised to keep up the appntment and follow-up would benefit from pancreatic enzyme supplements Advised to strictly avoid alcohol 07/17/18 23:15
[2018-07-17] MEDS ORDERED: POLYETHYLENE GLYCOL 3350 17 GM/Dose PACKET PO PRN (11:57)
[2018-07-17 16:18] VITALS: O2SAT 96
[2018-07-17] MEDS: Amylase/Lipase/Protease 5,000 Units ECC PO SCH (18:21)
[2018-07-18 06:51] LABS: ALB/GLOB RATIO 1.3 (1.1-1.8); ALT/SGPT 17 U/L (7-56); AST/SGOT 18 U/L (14-36); BLOOD UREA NITROGEN 7 mg/dL (7-21); CALCIUM 9.8 mg/dL (8.4-10.5); GFR NON-AFRICAN AMERICAN > 60
[2018-07-18 07:14] LABS: BASO # 0.03 K/mm3 (0.0-2.0); BASO % 0.5 % (0.0-3.0); EOS # 0.1 (0.0-0.7); EOS % 2.3 % (1.5-5.0); GRAN # 3.38 (1.4-6.5); GRAN % 59.9 % (50.0-68.0); HEMOGLOBIN 13.6 g/dL (12.0-16.0); LYMPH # 1.5 (1.2-3.4); LYMPH % 26.5 % (22.0-35.0); MEAN CELL VOLUME 96.4 fl (80.0-105.0); MEAN CORPUSCULAR HEMOGLOBIN 32.7 pg (25.0-35.0); MEAN CORPUSCULAR HGB CONC 33.9 g/dl (31.0-37.0); MONO # 0.6 (0.1-0.6); MONO % 10.8 % (1.0-6.0); RBC 4.16 10^6/uL (3.5-6.1); RED CELL DISTRIBUTION WIDTH 13.6 % (11.5-14.5); WHITE BLOOD COUNT 5.7 10^3/uL (4.5-11.0)
[2018-07-18 07:30] VITALS: RESP 20
[2018-07-18] MEDS: Insulin Reg-LOW-Coverage SC SCH (08:39)
[2018-07-18] MEDS: Enoxaparin 40 mg Syringe SC SCH (10:15)
[2018-07-18] MEDS: Amylase/Lipase/Protease 5,000 Units ECC PO SCH ×2 (10:17→13:40)
--- NOTE | 2018-07-18 12:56 | MRI ---
Date of service: 07/16/2018 PROCEDURE: MRI Abdomen with and without contrast plus MRCP imaging HISTORY: Pancreatic duct dilatation COMPARISON: CT 07/15/2018. TECHNIQUE: Multisequence, multiplanar MR images of the abdomen with and without gadolinium contrast enhancement. 20 cc of Omniscan were injected FINDINGS: LIVER: Unremarkable. GALLBLADDER: Gallbladder unremarkable. Common duct normal in caliber. SPLEEN: Unremarkable. PANCREAS: The pancreatic duct in the body and tail of the pancreas is severely dilated measuring 8 mm. There is no obstructing mass identified. Findings are consistent with a history of chronic pancreatitis. ADRENALS: Unremarkable. KIDNEYS: Unremarkable. AORTA: No aneurysm. ASCITES: None. PERITONEUM: Unremarkable. LYMPH NODES: Unremarkable. OTHER FINDINGS: The report concurs with the preliminary [facility] report IMPRESSION: The pancreatic duct in the body and tail of the pancreas is severely dilated measuring 8 mm. There is no obstructing mass identified. Findings are consistent with a history of chronic pancreatitis.
--- NOTE | 2018-07-18 13:33 | CP.PCM.PN ---
<Sergio Morse - Last Filed: 07/18/18 17:59> Subjective - Date & Time of Evaluation Date of Evaluation: 07/18/18 Time of Evaluation: 11:05 - Subjective Subjective: PGY-4 GI Fellow Prog Note Pt sitting up in bed when seen this AM. States she is tolerating diet w/o problems. Some minor abd pain but improved. 5 point ROS negative other than stated above Objective - Vital Signs/Intake and Output Vital Signs (last 24 hours): Temp Pulse Resp BP Pulse Ox 98.0 F 86 20 124/90 96 07/18/18 06:00 07/18/18 06:00 07/18/18 06:00 07/18/18 06:00 07/18/18 06:00 Intake and Output: 07/18/18 07/18/18 06:59 18:59 Intake Total 120 Balance 120 - Medications Medications: Current Medications Acetaminophen (Tylenol 325mg Tab) 650 mg PO Q6H PRN PRN Reason: Pain, Mild (1-3) Amylase (Pancrease 58010 U-5000 [id number] U) 10,000 unit PO TID [facility] Last Admin: 07/18/18 10:17 Dose: 10,000 unit Benzonatate (Tessalon Perles) 100 mg PO TID [facility] Last Admin: 07/18/18 10:19 Dose: 100 mg Enoxaparin Sodium (Lovenox) 40 mg SC DAILY [facility]; Protocol Last Admin: 07/18/18 10:15 Dose: 40 mg Ibuprofen (Motrin Tab) 600 mg PO Q6 PRN PRN Reason: Pain, moderate (4-7) Last Admin: 07/16/18 08:15 Dose: 600 mg Insulin Human Regular (Humulin R Low) 0 units SC [facility]; Protocol Last Admin: 07/18/18 08:39 Dose: 1 unit Pantoprazole Sodium (Protonix Inj) 40 mg IVP DAILY [facility] Last Admin: 07/18/18 10:17 Dose: 40 mg Polyethylene Glycol (Miralax) 17 gm PO DAILY PRN PRN Reason: Constipation Simethicone (Mylicon Chew Tab) 80 mg PO PCHS PRN PRN Reason: GI distress Last Admin: 07/16/18 16:07 Dose: 80 mg Tramadol HCl (Ultram) 50 mg PO TID PRN PRN Reason: Pain, severe (8-10) Last Admin: 07/18/18 05:22 Dose: 50 mg - Labs Labs: 07/18/18 06:15 07/18/18 06:15 - Constitutional Appears: Well, No Acute Distress - Head Exam Head Exam: ATRAUMATIC, NORMAL INSPECTION - Eye Exam Eye Exam: EOMI. absent: Scleral icterus - ENT Exam ENT Exam: Mucous Membranes Moist. absent: Mucous Membranes Dry - Respiratory Exam Respiratory Exam: NORMAL BREATHING PATTERN. absent: Accessory Muscle Use, Respiratory Distress - GI/Abdominal Exam GI & Abdominal Exam: Soft, Normal Bowel Sounds. absent: Bruit, Distended, Firm, Guarding, Rigid, Tenderness, Mass, Organomegaly, Pulsatile Mass, Rebound Assessment and Plan - Assessment and Plan (Free Text) Assessment: Chronic Pancreatitis #DM #HTN #Alcohol abuse #Nicotine dependence Plan: - CT reviewed, pancreatic calcifications and dilated PD consistent with chronic pancreatitis. - MRI+MRCP with dilated PD in body and tail w/o masses, c/w chronic pancreatitis - Pain control, IVF per primary - Cont pancreatic enzymes - She must stop alcohol and tobacco completely, this has been discussed with patient. - Pt to f/u with outpatient EGD/EUS at [facility] Case reviewed with Dr. Higginbotham. Please see addendum for further recs/changes. Thank you for the consult, will sign off. Please call if questions. <Willy Higginbotham V - Last Filed: 07/18/18 23:14> Objective - Vital Signs/Intake and Output Vital Signs (last 24 hours): Temp Pulse Resp BP Pulse Ox 98.4 F 78 20 118/82 96 07/18/18 16:37 07/18/18 16:37 07/18/18 16:37 07/18/18 16:37 07/18/18 16:37 - Labs Labs: 07/18/18 06:15 07/18/18 06:15 Attending/Attestation - Attestation I have personally seen and examined this patient.: Yes I have fully participated in the care of the patient.: Yes I have reviewed all pertinent clinical information, including history, physical exam and plan: Yes Notes (Text): This is an addendum to progress report dictated by the GI Fellow.The patient was seen and examined earlier. Medical records, lab studies, imagings were reviewe dJavon Pizano 24 hours events reviewed. Agreed with the above treatment plan as outlined in GI Fellow 's notes with the addition of the following 07/18/18 23:14
--- NOTE | 2018-07-18 14:14 | CP.PCM.DIS ---
<[address] - Last Filed: 07/18/18 16:04> Provider - Provider Date of Admission: 07/16/18 00:32 Attending physician: Scott Espino MD Primary care physician: Svetlana Rogers MD Consults: 07/17/18 16:31 Social Work Referral Routine Comment: Patient has chronic condition and no insurance. Physician Instructions: Reason For Exam: [facility], lack of insurance 07/16/18 17:52 Gastroenterology Consult Routine Comment: Consulting Provider: Willy Higginbotham V Consulting Physician: Willy Higginbotham V Reason for Consult: chronic pancreatitis, pancreatic duct dilation Time Spent in preparation of Discharge (in minutes): 35 Hospital Course - Lab Results Lab Results: Micro Results 07/15/18 20:40 Urine,Clean Catch Urine Culture - Final Gram Positive Cocci Most Recent Lab Values WBC 5.7 10^3/uL (4.5-11.0) D 07/18/18 06:15 RBC 4.16 10^6/uL (3.5-6.1) 07/18/18 06:15 Hgb 13.6 g/dL (12.0-16.0) 07/18/18 06:15 Hct 40.1 % (36.0-48.0) 07/18/18 06:15 MCV 96.4 fl (80.0-105.0) 07/18/18 06:15 MCH 32.7 pg (25.0-35.0) 07/18/18 06:15 MCHC 33.9 g/dl (31.0-37.0) 07/18/18 06:15 RDW 13.6 % (11.5-14.5) 07/18/18 06:15 Plt Count 323 10^3/uL (120.0-450.0) 07/18/18 06:15 MPV 9.0 fl (7.0-11.0) 07/18/18 06:15 Gran % 59.9 % (50.0-68.0) 07/18/18 06:15 Lymph % (Auto) 26.5 % (22.0-35.0) 07/18/18 06:15 Dent % (Auto) 10.8 % (1.0-6.0) H 07/18/18 06:15 Eos % (Auto) 2.3 % (1.5-5.0) 07/18/18 06:15 Baso % (Auto) 0.5 % (0.0-3.0) 07/18/18 06:15 Gran # 3.38 (1.4-6.5) 07/18/18 06:15 Lymph # (Auto) 1.5 (1.2-3.4) 07/18/18 06:15 Dent # (Auto) 0.6 (0.1-0.6) 07/18/18 06:15 Eos # (Auto) 0.1 (0.0-0.7) 07/18/18 06:15 Baso # (Auto) 0.03 K/mm3 (0.0-2.0) 07/18/18 06:15 Sodium 136 mmol/L (132-148) 07/18/18 06:15 Potassium 4.1 mmol/L (3.6-5.0) 07/18/18 06:15 Chloride 106 mmol/L (98-107) 07/18/18 06:15 Carbon Dioxide 23 mmol/L (21-33) 07/18/18 06:15 Anion Gap 11 (10-20) 07/18/18 06:15 BUN 7 mg/dL (7-21) 07/18/18 06:15 Creatinine 0.6 mg/dl (0.7-1.2) L 07/18/18 06:15 Est GFR ( Amer) > 60 07/18/18 06:15 Est GFR (Non-Af Amer) > 60 07/18/18 06:15 POC Glucose (mg/dL) 233 mg/dL (65-110) H 07/18/18 11:18 Random Glucose 164 mg/dL (70-110) H 07/18/18 06:15 Hemoglobin A1c 6.3 % (4.2-6.5) 07/16/18 08:00 Calcium 9.8 mg/dL (8.4-10.5) 07/18/18 06:15 Phosphorus 3.7 mg/dL (2.5-4.5) 07/18/18 06:15 Magnesium 1.6 mg/dL (1.7-2.2) L 07/18/18 06:15 Total Bilirubin 0.3 mg/dL (0.2-1.3) 07/18/18 06:15 AST 18 U/L (14-36) 07/18/18 06:15 ALT 17 U/L (7-56) 07/18/18 06:15 Alkaline Phosphatase 74 U/L (38-126) 07/18/18 06:15 Total Protein 7.2 g/dL (5.8-8.3) 07/18/18 06:15 Albumin 4.0 g/dL (3.0-4.8) 07/18/18 06:15 Globulin 3.2 gm/dL 07/18/18 06:15 Albumin/Globulin Ratio 1.3 (1.1-1.8) 07/18/18 06:15 Triglycerides 124 mg/dL (35-160) 07/16/18 06:00 Cholesterol 194 mg/dL (130-200) 07/16/18 06:00 LDL Cholesterol Direct 109 mg/dL (0-129) 07/16/18 06:00 HDL Cholesterol 42 mg/dL (29-60) 07/16/18 06:00 Lipase 738 U/L (23-300) H 07/15/18 21:50 Urine Color Yellow (YELLOW) 07/15/18 20:30 Urine Appearance Sl cloudy (CLEAR) 07/15/18 20:30 Urine pH 6.0 (4.7-8.0) 07/15/18 20:30 Ur Specific [place] >= 1.030 (1.005-1.035) 07/15/18 20:30 Urine Protein Trace mg/dL (<30 mg/dL) H 07/15/18 20:30 Urine Glucose (UA) Negative mg/dL (NEGATIVE) 07/15/18 20:30 Urine Ketones 15 mg/dL (NEGATIVE) H 07/15/18 20:30 Urine Blood Negative (NEGATIVE) 07/15/18 20:30 Urine Nitrate Negative (NEGATIVE) 07/15/18 20:30 Urine Bilirubin Small (NEGATIVE) H 07/15/18 20:30 Urine Urobilinogen 0.2 E.U./dL (<1 E.U./dL) 07/15/18 20:30 Ur Leukocyte Esterase Trace Ta/uL (NEGATIVE) H 07/15/18 20:30 Urine RBC 0 - 2 /hpf (0-2) 07/15/18 20:30 Urine WBC 1 - 3 /hpf (0-6) 07/15/18 20:30 Ur Epithelial Cells 1 - 3 /hpf (0-5) 07/15/18 20:30 Urine Bacteria Few /hpf (NONE) 07/15/18 20:30 Influenza Typ A,B (EIA) Negative for flu a/b (NEGATIVE) 07/16/18 01:50 - Hospital Course Hospital Course: Upon admission, 63 year old female who is a poor historian with past medical history of chronic pancreatitis, cervical cancer, hypertension, hyperlipidemia, and diabetes mellitus type II presents with diffuse abdominal pain, vomiting, and diarrhea which worsened the past 3 days. Patient has a baseline epigastric abdominal pain, but reports that the pain has worsened and radiated to bilateral flank pain. Pain worsens with food intake. Patient reports having 2-3 episodes of nonbloody, nonbilious vomitus 2 days ago but has not any since that time. Patient has had black diarrhea as well over the past 2 days as patient reported that she took peptobismol and maalox. Patient reports unspecified weight loss in the last month. Patient has constant neuropathic pain in both lower extremities. During hospital course, lipase was WNL and patient had no WBC count and remained afebrile. CT abd/pelvis showed diffuse pancreatic ductal dilatation up to 7 mm. Scattered pancreatic calcifications compatible with chronic pancreatitis. No mass appreciated. MRCP showed 7mm pancreatic ductal dilation consistent with chronic pancreatitis. Se was given tylenol, ibuprofen and tramadol for pain management. She was started on pancreatic enzymes as recommended by GI team. She was counseled extensively on alcohol and smoking cessation. Patient agreed to follow up with [facility] for chronic pancreatits as well as possible EGD and EUS. Patient agreed to follow up with her primary care doctor. Patient was given one month supply of all her home medications. All of patient's questions were answered and she agreed with discharge. Discharge Exam - Additional Findings Additional findings: - Constitutional Appears: Well, Non-toxic, No Acute Distress - Head Exam Head Exam: ATRAUMATIC, NORMAL INSPECTION, NORMOCEPHALIC - Eye Exam Eye Exam: EOMI - Respiratory Exam Respiratory Exam: Clear to Auscultation Bilateral, NORMAL BREATHING PATTERN - Cardiovascular Exam Cardiovascular Exam: REGULAR RHYTHM, RRR - GI/Abdominal Exam GI & Abdominal Exam: Normal Bowel Sounds, Soft. absent: Distended, Guarding, Rebound, Tenderness - Extremities Exam Extremities exam: Positive for: full ROM - Neurological Exam Neurological exam: Alert, CN II-XII Intact, Oriented x3 Discharge Plan - Discharge Medications Prescriptions: RX: amLODIPine [Norvasc] 5 mg PO DAILY #30 tab RX: Amylase/Lipase/Protease [Pancrease 01858 U-5000 U-08960 U] 10,000 unit PO TID #90 ecc RX: Famotidine 20 mg PO DAILY #30 tablet RX: Gabapentin [Neurontin] 300 mg PO TID #90 cap RX: GlipiZIDE [Glucotrol] 5 mg PO DAILY #30 tab RX: hydroCHLOROthiazide [Hydrodiuril] 25 mg PO DAILY #30 tab RX: MetFORMIN ER [Glucophage XR] 500 mg PO DAILY #30 ter - Follow Up Plan Condition: STABLE Disposition: HOME/ ROUTINE Instructions: Pancreatitis, Pancreatitis (DC) Additional Instructions: PATIENT TO FOLLOW UP WITH PRIMARY CARE PHYSICIAN IN 5-7 DAYS. Please schedule appointment for [facility]J as per our discussion. You may need to have endoscopy/EUS done by narrow gauge operator for chronic pancreatitis. Information has been provided to you to schedule appointment at [facility]. You have been started on pancreatic enzymes once daily. You have been given a refill of your home medications for one month. Please get refills from your primary care doctor. Please stop drinking alcohol and smoking. ANY NEW ONSET OF SYMPTOMS SUCH SHORTNESS OF BREATH, NAUSEA, VOMITING, REPORT BACK TO THE ER IMMEDIATELY. Referrals: Svetlana Rogers MD [Primary Care Provider] - Willy Higginbotham MD [Medical Doctor] - <Scott Espino - Last Filed: 07/18/18 18:26> Provider - Provider Date of Admission: 07/16/18 00:32 Attending physician: Scott Espino MD Primary care physician: Svetlana Rogers MD Consults: 07/17/18 16:31 Social Work Referral Routine Comment: Patient has chronic condition and no insurance. Physician Instructions: Reason For Exam: [facility], lack of insurance 07/16/18 17:52 Gastroenterology Consult Routine Comment: Consulting Provider: Willy Higginbotham V Consulting Physician: Willy Higginbotham V Reason for Consult: chronic pancreatitis, pancreatic duct dilation Hospital Course - Lab Results Lab Results: Micro Results 07/15/18 20:40 Urine,Clean Catch Urine Culture - Final Gram Positive Cocci Most Recent Lab Values WBC 5.7 10^3/uL (4.5-11.0) D 07/18/18 06:15 RBC 4.16 10^6/uL (3.5-6.1) 07/18/18 06:15 Hgb 13.6 g/dL (12.0-16.0) 07/18/18 06:15 Hct 40.1 % (36.0-48.0) 07/18/18 06:15 MCV 96.4 fl (80.0-105.0) 07/18/18 06:15 MCH 32.7 pg (25.0-35.0) 07/18/18 06:15 MCHC 33.9 g/dl (31.0-37.0) 07/18/18 06:15 RDW 13.6 % (11.5-14.5) 07/18/18 06:15 Plt Count 323 10^3/uL (120.0-450.0) 07/18/18 06:15 MPV 9.0 fl (7.0-11.0) 07/18/18 06:15 Gran % 59.9 % (50.0-68.0) 07/18/18 06:15 Lymph % (Auto) 26.5 % (22.0-35.0) 07/18/18 06:15 Dent % (Auto) 10.8 % (1.0-6.0) H 07/18/18 06:15 Eos % (Auto) 2.3 % (1.5-5.0) 07/18/18 06:15 Baso % (Auto) 0.5 % (0.0-3.0) 07/18/18 06:15 Gran # 3.38 (1.4-6.5) 07/18/18 06:15 Lymph # (Auto) 1.5 (1.2-3.4) 07/18/18 06:15 Dent # (Auto) 0.6 (0.1-0.6) 07/18/18 06:15 Eos # (Auto) 0.1 (0.0-0.7) 07/18/18 06:15 Baso # (Auto) 0.03 K/mm3 (0.0-2.0) 07/18/18 06:15 Sodium 136 mmol/L (132-148) 07/18/18 06:15 Potassium 4.1 mmol/L (3.6-5.0) 07/18/18 06:15 Chloride 106 mmol/L (98-107) 07/18/18 06:15 Carbon Dioxide 23 mmol/L (21-33) 07/18/18 06:15 Anion Gap 11 (10-20) 07/18/18 06:15 BUN 7 mg/dL (7-21) 07/18/18 06:15 Creatinine 0.6 mg/dl (0.7-1.2) L 07/18/18 06:15 Est GFR ( Amer) > 60 07/18/18 06:15 Est GFR (Non-Af Amer) > 60 07/18/18 06:15 POC Glucose (mg/dL) 86 mg/dL (65-110) 07/18/18 15:50 Random Glucose 164 mg/dL (70-110) H 07/18/18 06:15 Hemoglobin A1c 6.3 % (4.2-6.5) 07/16/18 08:00 Calcium 9.8 mg/dL (8.4-10.5) 07/18/18 06:15 Phosphorus 3.7 mg/dL (2.5-4.5) 07/18/18 06:15 Magnesium 1.6 mg/dL (1.7-2.2) L 07/18/18 06:15 Total Bilirubin 0.3 mg/dL (0.2-1.3) 07/18/18 06:15 AST 18 U/L (14-36) 07/18/18 06:15 ALT 17 U/L (7-56) 07/18/18 06:15 Alkaline Phosphatase 74 U/L (38-126) 07/18/18 06:15 Total Protein 7.2 g/dL (5.8-8.3) 07/18/18 06:15 Albumin 4.0 g/dL (3.0-4.8) 07/18/18 06:15 Globulin 3.2 gm/dL 07/18/18 06:15 Albumin/Globulin Ratio 1.3 (1.1-1.8) 07/18/18 06:15 Triglycerides 124 mg/dL (35-160) 07/16/18 06:00 Cholesterol 194 mg/dL (130-200) 07/16/18 06:00 LDL Cholesterol Direct 109 mg/dL (0-129) 07/16/18 06:00 HDL Cholesterol 42 mg/dL (29-60) 07/16/18 06:00 Lipase 738 U/L (23-300) H 07/15/18 21:50 Urine Color Yellow (YELLOW) 07/15/18 20:30 Urine Appearance Sl cloudy (CLEAR) 07/15/18 20:30 Urine pH 6.0 (4.7-8.0) 07/15/18 20:30 Ur Specific [place] >= 1.030 (1.005-1.035) 07/15/18 20:30 Urine Protein Trace mg/dL (<30 mg/dL) H 07/15/18 20:30 Urine Glucose (UA) Negative mg/dL (NEGATIVE) 07/15/18 20:30 Urine Ketones 15 mg/dL (NEGATIVE) H 07/15/18 20:30 Urine Blood Negative (NEGATIVE) 07/15/18 20:30 Urine Nitrate Negative (NEGATIVE) 07/15/18 20:30 Urine Bilirubin Small (NEGATIVE) H 07/15/18 20:30 Urine Urobilinogen 0.2 E.U./dL (<1 E.U./dL) 07/15/18 20:30 Ur Leukocyte Esterase Trace Ta/uL (NEGATIVE) H 07/15/18 20:30 Urine RBC 0 - 2 /hpf (0-2) 07/15/18 20:30 Urine WBC 1 - 3 /hpf (0-6) 07/15/18 20:30 Ur Epithelial Cells 1 - 3 /hpf (0-5) 07/15/18 20:30 Urine Bacteria Few /hpf (NONE) 07/15/18 20:30 Influenza Typ A,B (EIA) Negative for flu a/b (NEGATIVE) 07/16/18 01:50 Attending/Attestation - Attestation I have personally seen and examined this patient.: Yes I have fully participated in the care of the patient.: Yes I have reviewed all pertinent clinical information, including history, physical exam and plan: Yes
[2018-07-18 16:37] VITALS: BP 118/82; PULSE 78; TEMP 98.4
[2018-07-19] MEDS ORDERED: Pantoprazole 40 mg EC Tab PO SCH (07:30)
== END 2018-07-18 19:03 | disposition home or self-care (01) ==
LOC: ED 19:03 → ERH 07-16 00:32 → 3RNO 07-16 03:05
PROVIDERS: ADMIT Internal Medicine; ATTEND Hospitalist
DX: K86.1 Other chronic pancreatitis (principal); I10 Essential (primary) hypertension; E78.5 Hyperlipidemia, unspecified; E11.9 Type 2 diabetes mellitus without complications; K59.00 Constipation, unspecified; Z85.41 Personal history of malignant neoplasm of cervix uteri; F17.200 Nicotine dependence, unspecified, uncomplicated; F10.10 Alcohol abuse, uncomplicated
CPT/HCPCS: 36415; 74177; 74183; 80053; 80061; 81001; 82948; 83036; 83690; 83735; 84100; 85025; 85027; 87086; 87804; 96361; 96372; 96374; 96375; 96376; 99284; A9579; C9113; G0378; J1650; J1885; J2405; J7030; Q9967